=== PATIENT | female | born 1980 | race Caucasian/White ===

== ENCOUNTER 2019-11-06 15:25 | Outpatient (CLI) | payer OTHER, SELFPAY ==
--- NOTE | ~2019-11-06 | XR_ITS ---
EXAMINATION: XR sacroiliac joints min 3V EXAM DATE: 11/06/2019 17:54 INDICATION: Sacroiliac pain. TECHNIQUE: Bilateral oblique, frontal projections of the sacroiliac joints. There are no prior studi es for comparison. There is no prior study for comparison. FINDINGS: There are no acute sacral fractures or dislocations identified. There is no subcutaneous g as. The soft tissue is unremarkable. There is IUD projecting over the central aspect of the pelvis . The sacroiliac joints are symmetric. IMPRESSION: Unremarkable sacroiliac joints exam. Reviewed, dictated and finalized at location A.
--- NOTE | ~2019-11-06 | XR_ITS ---
EXAMINATION: XR hand RT min 3V EXAM DATE: 11/06/2019 17:54 INDICATION: No known recent injury provided at this time. Pain of the hand. TECHNIQUE: Right hand frontal, lateral and oblique projections obtained and reviewed. Comparison is m lou to prior examination from 01/09/2019. FINDINGS: Right metacarpal bones are unremarkable. There are no acute fractures or dislocations iden tified. There is no subcutaneous gas. The soft tissue is unremarkable. There are no radiopaque fo reign bodies. There are no bony erosions identified. IMPRESSION: Normal x-ray exam. Reviewed, dictated and finalized at location A. IMPRESSION: Normal x-ray exam.
--- NOTE | ~2019-11-06 | XR_ITS ---
EXAMINATION: XR hand LT min 3V EXAM DATE: 11/06/2019 17:54 INDICATION: No known recent injury provided at this time. Pain of the left hand. TECHNIQUE: Left hand frontal, lateral and oblique projections obtained and reviewed. Comparison is ma sho to prior examination from 01/09/2019. FINDINGS: Left metacarpal bones are unremarkable. There are no bony erosions identified. There are no acute fractures or dislocations identified. There is no subcutaneous gas. The soft tissue is unr emarkable. IMPRESSION: Normal x-ray exam. Reviewed, dictated and finalized at location A. IMPRESSION: Normal x-ray exam.
[2019-11-06 17:22] LABS: Basophils Absolute Auto 0.1 K/mm3 (0.0-0.1); Basophils Percent Auto 0.7 % (0.2-1.2); Eosinophils Absolute Auto 0.2 K/mm3 (0-0.3); Eosinophils Percent Auto 1.5 % (0-4.4); Hematocrit 36.5 % (37.0-47.0); Immature Granulocyte Absolute 0.04 K/mm3 (0.00-0.031); Immature Granulocyte Percent A 0.4 % (0-0.5); Lymphocytes Absolute Auto 2.52 K/mm3 (0.9-3.2); Mean Corpuscular HGB Conc 35.6 g/dl (32-36); Mean Corpuscular Hemoglobin 31.8 pg (26-34); Mean Corpuscular Volume 89.2 fl (80-100); Mean Platelet Volume 9.6 fl (7.4-10.4); Monocytes Absolute Auto 0.6 K/mm3 (0.1-0.6); Monocytes Percent Auto 6.3 % (2.6-8.5); Neutrophils Absolute Auto 6.7 K/mm3 (1.3-6.7); Neutrophils Percent Auto 66.1 % (45.5-73.1); Platelet Count Result 261 k/mm3 (150-375); Red Blood Count 4.09 M/mm3 (4.2-5.4); Red Cell Distribution Width 11.8 % (11.5-14.5); White Blood Count 10.1 K/mm3 (4.5-10.0)
[2019-11-06 17:33] LABS: Alanine Aminotransferase 18 U/L (4-35); Albumin Level 4.7 g/dL (3.5-5.1); Alkaline Phosphatase 53 U/L (38-126); Aspartate Amino Transferase 28 U/L (14-36); Bilirubin,Total 0.3 mg/dL (0.2-1.3); Blood Urea Nitrogen 15 mg/dL (7-17); CRP < 0.5 mg/dL (<1.0); Calcium 9.5 mg/dL (8.4-10.2); Carbon Dioxide 27 mmol/L (22-30); Chloride 101 mmol/L (98-107); Creatine Kinase 71 U/L (30-135); Estimated Glomerular Filt Rate > 60; Glucose 94 mg/dL (65-105); Potassium 3.3 mmol/L (3.4-5.0); Sodium 137 mmol/L (137-145); Uric Acid 4.5 mg/dL (2.5-7.5)
[2019-11-06 17:37] LABS: Complement C3 98 mg/dL (88-165)
[2019-11-06 17:47] LABS: Erythrocyte Sedimentation Rate 38 mm/hr (0-20)
[2019-11-06 18:15] LABS: Vitamin D 25 Hydroxy 55.6 ng/mL
[2019-11-11 04:36] LABS: Albumin 4.6 g/dL (3.8-4.8); Alpha 1 Globulin 0.2 g/dL (0.2-0.3); Alpha 2 Globulin 0.6 g/dL (0.5-0.9); Beta 1 Globulin 0.5 g/dL (0.4-0.6); Gamma Globulin 1.3 g/dL (0.8-1.7); Protein, Total 7.6 g/dL (6.1-8.1)
[2019-11-12 10:26] LABS: Histone Antibody <1.0 U (<1.0)
[2019-11-12 11:53] LABS: Chromatin Antibody <1.0; RNP Antibodies <1.0; SS-A <1.0; SS-B <1.0
[2019-11-12 12:04] LABS: Anti Nuclear Antibody Titer >=1:1280 (Negative)
[2019-11-12 18:47] LABS: Complement Total CH50 59 U/mL (31-60)
[2019-11-14 01:37] LABS: HLA B27 Negative (Negative)
[2019-11-15 10:38] LABS: SM Antibody <1.0; SM/RNP Antibody <1.0
== END 2019-11-06 15:26 | disposition home or self-care (01) ==
PROVIDERS: PCP Internal Medicine
DX: M25.50 Pain in unspecified joint (principal); M25.571 Pain in right ankle and joints of right foot; M25.572 Pain in left ankle and joints of left foot; R76.0 Raised antibody titer
CPT/HCPCS: 36415; 72202; 73130; 80053; 82306; 82550; 83516; 84155; 84165; 84443; 84550; 85025; 85652; 86038; 86039; 86140; 86160; 86162; 86225; 86235; 86334; 86812

== ENCOUNTER 2019-12-19 13:55 | Outpatient (CLI) | payer OTHER, SELFPAY ==
[2019-12-19 15:58] LABS: Blood Urea Nitrogen 16 mg/dL (7-17); Calcium 9.5 mg/dL (8.4-10.2); Carbon Dioxide 28 mmol/L (22-30); Chloride 98 mmol/L (98-107); Estimated Glomerular Filt Rate > 60; Glucose 94 mg/dL (65-105); Potassium 3.6 mmol/L (3.4-5.0); Sodium 135 mmol/L (137-145)
== END 2019-12-19 13:56 | disposition home or self-care (01) ==
LOC: ANHLAB 13:57
PROVIDERS: PCP Internal Medicine; Visit Provider Nurse Practitioner
DX: R25.2 Cramp and spasm (principal)
CPT/HCPCS: 36415; 80048

== ENCOUNTER 2019-12-31 16:45 | Outpatient (CLI) | payer OTHER, SELFPAY ==
--- NOTE | ~2019-12-31 | US_ITS ---
US thyroid INDICATION: Dysphagia. TECHNIQUE: Real-time sonographic images of the thyroid gland were obtained. COMPARISON: Ultrasound dated 03/09/2018 FINDINGS: The right thyroid lobe measures 5.2 x 2.4 x 1.7 cm. The left thyroid lobe measures 4.8 x 1 .6 x 1.2 cm. Thyroid echotexture is somewhat heterogeneous, although no discrete mass is identified. Normal internal vascularity. IMPRESSION: 1. Mildly enlarged thyroid gland which is otherwise unremarkable. Reviewed, dictated and finalized at location A.
== END 2019-12-31 16:46 | disposition home or self-care (01) ==
PROVIDERS: PCP Internal Medicine; Visit Provider Nurse Practitioner
DX: E04.1 Nontoxic single thyroid nodule (principal); R13.10 Dysphagia, unspecified
CPT/HCPCS: 76536

== ENCOUNTER 2020-01-31 02:37 | Outpatient (CLI) | payer OTHER, SELFPAY ==
[2020-01-31 18:57] LABS: SARS-CoV-2 RNA PCR Negative
== END 2020-01-31 02:38 | disposition home or self-care (01) ==
LOC: ANHCOVIDDT 02:37
PROVIDERS: PCP Internal Medicine; Visit Provider Internal Medicine Gastroenterology
DX: Z01.812 Encounter for preprocedural laboratory examination (principal); Z11.59 Encounter for screening for other viral diseases
CPT/HCPCS: 87635; C9803; U0003

== ENCOUNTER 2020-02-03 00:53 | Day surgery (SDC) | payer OTHER, SELFPAY ==
[2020-01-27 16:10] VITALS: BMI 28.6
[2020-02-03 06:55] VITALS: BP 145/90; PULSE 74; RESP 18; TEMP 36.9; O2SAT 100; BMI 29.8
--- NOTE | 2020-02-03 07:01 | PM.HPGS ---
History of Present Illness History of Present Illness Consent: Risks, benefits, and alternatives have been discussed and questions answered. Patient agrees to proceed with procedure. Chief complaint: Dysphagia Narrative: Osvaldo Moore is a 39 year old W female referred for gastroscopy and possible esophageal dilatation. Patient has had a several month history of intermittent dysphagia for both liquids and solids. Patient points to the cervical region. Patient has occasional episode of heartburn. Occasional regurgitation. No nausea or vomiting or hematemesis. No melena. Patient takes ibuprofen 4 mg couple times per week. She has a positive MOODY but other rheumatological markers are negative. Patient has had no weight loss. No fever chills or sweats. No known food allergies. Patient did have an ultrasound of the neck revealed a mildly enlarged thyroid gland otherwise unremarkable [facility] Past Medical History Medical History Anxiety Gestational diabetes Hypertension Paresthesia Family History Family History Father Hypertension Mother Hypertension Diabetes mellitus Hyperlipidemia Sibling Hypertension Multiple sclerosis Other Family history of heart disease in male family member before age 55 Social History Social History Smoking status: Never smoker Alcohol intake: current Meds Home Medications and Allergies Home Medications Medication Instructions Recorded Confirmed Type hydrochlorothiazide 12.5 mg tablet 12.5 mg PO DAILY #90 tablet 07/04/19 01/27/20 Rx alprazolam 0.25 mg tablet 0.25 mg PO BID PRN 12/11/19 01/27/20 History cholecalciferol (vitamin D3) 10 10 mcg PO DAILY 12/11/19 01/27/20 History mcg (400 unit) capsule levonorgestrel 20 mcg/24 hours (5 1 device I-UTERINE ONCE 12/11/19 01/27/20 History yrs) 52 mg intrauterine device multivitamin 1 tablet PO DAILY 12/11/19 01/27/20 History Allergies Allergy/AdvReac Type Severity Reaction Status Date / Time Penicillins Allergy Unknown Rash Verified 02/03/20 06:54 Vital Signs Vital Signs - 24 hr 02/03/20 06:55 Temperature 36.9 C Pulse Rate 74 Respiratory Rate 18 Blood Pressure 145/90 H Pulse Oximetry 100 Exam Const: Orientation/consciousness: patient oriented x3 Resp: Auscultation: clear to auscultation bilaterally Cardio: Rate: regular rate Rhythm: regular rhythm Heart sounds: no murmurs GI: GI Palp: Yes Soft to palpation, No Tenderness to palpation present (GI), Yes No hepatosplenomegaly present and No Palpable mass present Auscultation: normal bowel sounds Neuro: General: patient oriented x3 and no focal motor deficits Extrem: General: no pedal edema Assessment and Plan Additional Plan EGD for evaluation of cervical dysphagia
[2020-02-03] MEDS: LACTATED RINGERS 1,000 ML 150 ML IV CONT (07:04)
--- NOTE | 2020-02-03 07:30 | WPDANESEPPF ---
Anes - Initial Pre Proc Eval Procedure: Operation Date: 02/03/20 08:00 Proposed Procedures p Esophagogastroduodenoscopy - Wade Barbosa MD Date/Time: 02/03/20 07:30 Surgeon: Wade Barbosa MD Pre Op Diagnosis: Dysphagia Patient Data Age: 39 Gender: F Height: 5 ft 5 in Weight: 81.4 kg Last Vital Signs Temp 98.4 F 02/03/20 06:55 Pulse 74 02/03/20 06:55 Resp 18 02/03/20 06:55 BP 145/90 H 02/03/20 06:55 Pulse Ox 100 02/03/20 06:55 Allergies Allergy/AdvReac Type Severity Reaction Status Date / Time Penicillins Allergy Unknown Rash Verified 02/03/20 06:54 Home Medications Medication Instructions Recorded Confirmed Type hydrochlorothiazide 12.5 mg tablet 12.5 mg PO DAILY #90 tablet 07/04/19 01/27/20 Rx alprazolam 0.25 mg tablet 0.25 mg PO BID PRN 12/11/19 01/27/20 History cholecalciferol (vitamin D3) 10 10 mcg PO DAILY 12/11/19 01/27/20 History mcg (400 unit) capsule levonorgestrel 20 mcg/24 hours (5 1 device I-UTERINE ONCE 12/11/19 01/27/20 History yrs) 52 mg intrauterine device multivitamin 1 tablet PO DAILY 12/11/19 01/27/20 History Patient hx anesthesia problems: none Family hx anesthesia problems: none PMFSH Past Medical History Medical History Anxiety Gestational diabetes Hypertension Paresthesia Family History Family History Father Hypertension Mother Hypertension Diabetes mellitus Hyperlipidemia Sibling Hypertension Multiple sclerosis Other Family history of heart disease in male family member before age 55 Social History Social History Smoking status: Never smoker Alcohol intake: current Anes - Eval Final PreProcedure Day of Procedure 02/03/20 07:30 Patient weight: normal Heart: regular rate and rhythm Lungs: clear to auscultation Airway: Mallampati scale class II Neurological: alert and oriented Last oral intake: >/= 8 hours ASA classification: II Emergent: no Anesthetic plan: proceed Anesthesia type and monitoring: general GIVS and standard monitoring Informed Consent: The patient's anesthetic plan and its attendant risks and benefits were discussed with the patient/family/POA. Questions were solicited and answers provided to the satisfaction of the patient/family/POA.
[2020-02-03] MEDS: BENZOCAINE (*SP) 60 ML SPRAY CAN (HURRICAINE) 1 SPRAY MUCOUS MEM (07:55)
[2020-02-03 08:07] VITALS: BP 96/61; PULSE 67; RESP 15; O2SAT 94
[2020-02-03 08:17] VITALS: BP 98/61; PULSE 67; RESP 15; O2SAT 94
[2020-02-03 08:27] VITALS: BP 125/81; PULSE 77; RESP 15; O2SAT 96
== END 2020-02-03 09:00 | disposition home or self-care (01) ==
PROVIDERS: PCP Internal Medicine; Visit Provider Internal Medicine Gastroenterology
PROC: 0DJ08ZZ Inspection of Upper Intestinal Tract, Via Natural or Artificial Opening Endoscopic (ICD-10-PCS; CPT 43235; principal; 2020-02-03 08:00)
DX: R13.10 Dysphagia, unspecified (principal); K20.9 Esophagitis, unspecified; I10 Essential (primary) hypertension; F41.9 Anxiety disorder, unspecified
CPT/HCPCS: 43239; 87081; 88305; J2704; J7120

== ENCOUNTER 2020-05-09 07:10 | Outpatient (CLI) | payer OTHER, SELFPAY | END 2020-05-09 07:11 | disposition home or self-care (01) | LOC: ANHLAB 07:13 | PROVIDERS: PCP Internal Medicine | DX: Z13.1 Encounter for screening for diabetes mellitus (principal) | CPT/HCPCS: 36415; 83036 ==

== ENCOUNTER 2020-07-24 07:05 | Outpatient (CLI) | payer OTHER, SELFPAY ==
[2020-07-24 07:36] LABS: Basophils Absolute Auto 0.1 K/mm3 (0.0-0.1); Basophils Percent Auto 0.6 % (0.2-1.2); Eosinophils Absolute Auto 0.2 K/mm3 (0-0.3); Eosinophils Percent Auto 1.9 % (0-4.4); Hematocrit 39.6 % (37.0-47.0); Hemoglobin 13.8 g/dL (12.0-15.0); Immature Granulocyte Absolute 0.02 K/mm3 (0.00-0.031); Immature Granulocyte Percent A 0.2 % (0-0.5); Lymphocytes Percent Auto 28.8 % (18.3-44.2); Mean Corpuscular HGB Conc 34.8 g/dl (32-36); Mean Corpuscular Hemoglobin 31.4 pg (26-34); Mean Corpuscular Volume 90.2 fl (80-100); Mean Platelet Volume 9.3 fl (7.4-10.4); Monocytes Absolute Auto 0.6 K/mm3 (0.1-0.6); Monocytes Percent Auto 6.6 % (2.6-8.5); Neutrophils Absolute Auto 5.2 K/mm3 (1.3-6.7); Neutrophils Percent Auto 61.9 % (45.5-73.1); Platelet Count Result 271 k/mm3 (150-375); Red Blood Count 4.39 M/mm3 (4.2-5.4); Red Cell Distribution Width 11.9 % (11.5-14.5); White Blood Count 8.3 K/mm3 (4.5-10.0)
[2020-07-24 07:58] LABS: Alanine Aminotransferase 15 U/L (4-35); Albumin Level 4.3 g/dL (3.5-5.1); Alkaline Phosphatase 51 U/L (38-126); Anion Gap 5 mmol/L (8-16); Aspartate Amino Transferase 23 U/L (14-36); Bilirubin,Total 0.3 mg/dL (0.2-1.3); Blood Urea Nitrogen 19 mg/dL (7-17); Calcium 8.9 mg/dL (8.4-10.2); Carbon Dioxide 26 mmol/L (22-30); Chloride 107 mmol/L (98-107); Cholesterol 137 mg/dL (0-200); Estimated Glomerular Filt Rate > 60; Glucose 110 mg/dL (65-105); HDL Direct 25 mg/dL; Magnesium 1.9 mg/dL (1.6-2.3); Potassium 4.2 mmol/L (3.4-5.0); Sodium 138 mmol/L (137-145); Triglycerides 168 mg/dL (<150)
[2020-07-24 08:09] LABS: LDL Cholesterol Direct 84 mg/dL
== END 2020-07-24 07:06 | disposition home or self-care (01) ==
PROVIDERS: Family Provider Internal Medicine; PCP Internal Medicine; Visit Provider Clinical Nurse Specialist
DX: R00.2 Palpitations (principal); Z13.228 Encounter for screening for other metabolic disorders; I10 Essential (primary) hypertension; E04.1 Nontoxic single thyroid nodule
CPT/HCPCS: 36415; 80053; 80061; 83735; 84443; 85025

== ENCOUNTER 2020-08-05 13:43 | Outpatient (CLI) | payer OTHER, SELFPAY ==
--- NOTE | 2020-08-05 13:56 | ECHO_ITS ---
Patient Info Name: Osvaldo Moore Age: 40 years : 1980 Gender: Female Ht: 65 in Wt: 175 lbs BSA: 1.93 m2 HR: 88 bpm BP: 129 / 88 mmHg Technical Quality: Good Exam Date: 08/05/2020 2:07 PM Exam Location: [facility] Patient Status: Outpatient Admit Date: 08/05/2020 Staff Ordering Physician: Kala Montgomery NP Alpine Patroller: Rebecca Vieira RDCS Attending Provider: Kala Montgomery NP Referring Physician: Valentina CORONA; Exam Type: CA echo doppler color flow Study Info Indications palpitations - Complete two-dimensional, color flow and Doppler transthoracic echocardiogram is performed. Summary 1. Complete two-dimensional, color flow and Doppler transthoracic echocardiogram is performed. 2. Left ventricular chamber dimension is normal. 3. Left ventricular systolic function is normal, estimated at 60-65%. 4. The left ventricular diastolic function is grade II diastolic dysfunction. 5. E/e' 10 is mildly elevated. 6. No pulmonary hypertension, estimated pulmonary arterial systolic pressure is 25 mmHg. Left Ventricle E/e' 10 is mildly elevated. Left ventricular chamber dimension is normal. Left ventricular systolic function is normal, estimated at 60-65%. The left ventricular diastolic function is grade II diastolic dysfunction. Right Ventricle Right ventricular chamber dimension is normal. Right ventricular systolic function is normal. Left Atria Left atrial chamber dimension is normal. Right Atria Right atrial chamber dimension is normal. Aortic Valve The aortic valve is trileaflet. There is no aortic valve stenosis. There is no aortic valve regurgitation. Pulmonic Valve There is no pulmonic regurgitation. Mitral Valve There is no mitral valve stenosis. There is no mitral valve regurgitation. Tricuspid Valve There is no tricuspid valve regurgitation. No pulmonary hypertension, estimated pulmonary arterial systolic pressure is 25 mmHg. Pericardium/Pleural There is no pericardial effusion. Inferior Vena Cava Normal inferior vena cava with >50% collapse upon inspiration consistent with normal right atrial pressure, 5 mmHg. Aorta The aortic root size at the sinus of Valsalva is normal. Left Ventricular Outflow Tract Name Value Normal LVOT 2D LVOT Diameter 2.0 cm LVOT Doppler LVOT Peak Gradient 8 mmHg LVOT Mean Gradient 4 mmHg LVOT VTI 24 cm LVOT VTI/AV VTI Ratio 0.8 LVOT Stroke Volume 73 ml LVOT CO 18.3 l/min LVOT CI 9.5 l/min/m2 Pulmonic Valve Name Value Normal PV Doppler PV Peak Gradient 5 mmHg Mitral Valve
== END 2020-08-05 13:44 | disposition home or self-care (01) ==
PROVIDERS: Family Provider Internal Medicine; PCP Internal Medicine; Visit Provider Nurse Practitioner
DX: R00.2 Palpitations (principal)
CPT/HCPCS: 93306

== ENCOUNTER 2020-09-16 13:44 | Outpatient (CLI) | payer OTHER, SELFPAY ==
--- NOTE | 2020-09-16 15:00 | NEURO_ITS ---
Impression: # Complains of numbness. # Normal nerve conduction study including median and ulnar motor and sensory nerves # Normal needle/EMG exam. # Clinical correlation recommended. Nerve Conduction Studies Anti Sensory Summary Table Stim Site NR Peak (ms) P-T Amp (?V) Site1 Site2 Delta-P (ms) Dist (cm) Gerardo (m/s) Left Median Anti Sensory (2-3nd Digit) Wrist 2.6 104.3 Wrist 2-3nd Digit 2.6 14.0 54 Wrist 2.5 139.7 Wrist 2-3nd Digit 2.6 14.0 54 Right Median Anti Sensory (2-3nd Digit) Wrist 2.6 102.4 Wrist 2-3nd Digit 2.6 14.0 54 Wrist 2.6 107.9 Wrist 2-3nd Digit 2.6 14.0 54 Left Radial Anti Sensory (Base 1st Digit) Wrist 2.2 32.5 Wrist Base 1st Digit 2.2 0.0 Right Radial Anti Sensory (Base 1st Digit) Wrist 2.1 27.0 Wrist Base 1st Digit 2.1 0.0 Left Ulnar Anti Sensory (5th Digit) Wrist 2.3 125.7 Wrist 5th Digit 2.3 14.0 61 Right Ulnar Anti Sensory (5th Digit) Wrist 2.2 99.6 Wrist 5th Digit 2.2 14.0 64 Motor Summary Table Stim Site NR Onset (ms) O-P Amp (mV) Site1 Site2 Delta-0 (ms) Dist (cm) Gerardo (m/s) Left Median Motor (Abd Poll Brev) Wrist 2.8 1.7 Elbow Wrist 4.8 31.0 65 Elbow 7.6 1.0 Right Median Motor (Abd Poll Brev) Wrist 2.8 8.0 Elbow Wrist 4.0 26.0 65 Elbow 6.8 2.9 Left Ulnar Motor (Abd Dig Minimi) Wrist 2.2 4.1 A Elbow Wrist 4.7 29.0 62 A Elbow 6.9 2.9 Right Ulnar Motor (Abd Dig Minimi) Wrist 2.0 4.6 A Elbow Wrist 4.7 28.0 60 A Elbow 6.7 3.8 F Wave Studies NR F-Lat (ms) L-R F-Lat (ms) Left Median (Mrkrs) (Abd Poll Brev) 23.53 1.33 Right Median (Mrkrs) (Abd Poll Brev) 24.85 1.33 Left Ulnar (Mrkrs) (Abd Dig Min) 24.83 1.11 Right Ulnar (Mrkrs) (Abd Dig Min) 25.94 1.11 EMG Side Muscle Nerve Root Ins Act Fibs Amp Dur Recrt Comment Right 1stDorInt Ulnar C8-T1 Nml Nml Nml Nml Nml Right Ext Indicis Radial (Post Int) C7-8 Nml Nml Nml Nml Nml Right Ext Digitorum Radial (Post Int) C7-8 Nml Nml Nml Nml Nml Right BrachioRad Radial C5-6 Nml Nml Nml Nml Nml Right PronatorTeres Median C6-7 Nml Nml Nml Nml Nml Right Abd Poll Brev Median C8-T1 Nml Nml Nml Nml Nml Left 1stDorInt Ulnar C8-T1 Nml Nml Nml Nml Nml Left Ext Indicis Radial (Post Int) C7-8 Nml Nml Nml Nml Nml Left Ext Digitorum Radial (Post Int) C7-8 Nml Nml Nml Nml Nml Left BrachioRad Radial C5-6 Nml Nml Nml Nml Nml Left PronatorTeres Median C6-7 Nml Nml Nml Nml Nml Left Abd Poll Brev Median C8-T1 Nml Nml Nml Nml Nml MTDD
== END 2020-09-16 13:45 | disposition home or self-care (01) ==
PROVIDERS: PCP Internal Medicine
DX: R20.0 Anesthesia of skin (principal); R20.2 Paresthesia of skin
CPT/HCPCS: 95886; 95911

== ENCOUNTER 2020-11-03 08:00 | Outpatient (RCR) | payer OTHER, SELFPAY ==
--- NOTE | 2020-10-02 10:29 | PTOPEVAL ---
PHYSICAL THERAPY EVALUATION AND PLAN OF CARE 10-02-20 Thank you for referring Osvaldo Moore to [facility], for the diagnosis of thoracic and lumbar strain.? She is scheduled to be seen for therapy? 2-3 x/week for 2 weeks. Please review, sign, date and return this plan of care [facility]. I agree with and certify that the following plan of care is medically necessary. Referring Physician Date Referring Provider: Nanci Fleming, CRISTINA Document 10/02/20 09:35 SANDER (Rec: 10/02/20 10:29 SANDER [id number]) Assessment Status Evaluation Outpatient Past Medical History Past Medical History Source of Past Medical History Recalled from Previous Visit, Confirmed with Patient/Family Neurological History Hx Neurological Disorders No Significant History Cardiovascular History Hx Cardiac Arrhythmia Yes: pvc's Hx Hypertension Yes: meds Respiratory History Hx Respiratory Disorders No Significant History Gastrointestinal History Hx Gastroesophageal Reflux Disease Yes Genitourinary History Hx Genitourinary Disorders No Significant History Musculoskeletal History Hx Other Musculoskeletal Disorders Yes: previous PT for neck pain , 2-3 yr ago Hematological History Hx Hematological Disorders No Significant History Endocrine History Hx Endocrine Disorders No Significant History HEENT History Hx Other HEENT Disorders Yes: wisdom teeth removed Integumentary History Hx Skin Disorders No Significant History Reproductive History Hx Reproductive Disorders No Significant History Psychosocial History Hx Anxiety Yes Pain History History of Any Previous or Ongoing No Significant History Instance of Pain Anesthesia History Hx Anesthesia Reactions No Significant History Other History Hx Other Medical Conditions Yes: COVID in Apr 2020, ill for ~ 10 days-inc pvc's Evaluation Information Problem Diagnosis thoracic lumbar strain Onset September 17, 2020 Subjective Information was at work, lifting Query Text:As Reported By 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
--- NOTE | 2020-10-15 16:00 | PTOPEVAL ---
PHYSICAL THERAPY RE-EVALUATION AND UPDATED PLAN OF CARE 10-15-20 Refer to the clinical summary below for her status with today's reevaluation, compared to the initial evaluation. Recommend continued PT treatment 2x/wk for 3 weeks, to further increase her strength and lifting for return to full work duties. Thank you for referring Osvaldo Moore to [facility].? Please review, sign, date and return this plan of care [place]. I agree with and certify that the following plan of care is medically necessary. Referring Physician Date Referring Provider: Savage Hammond, MD *PT Outpatient Re-evaluation Document 10/15/20 15:20 SANDER (Rec: 10/15/20 16:00 SANDER [id number]) Subjective Information Osvaldo reports: back is better Query Text:As Reported By Patient/ - not hurting all the time Family like it was; have not been doing any lifting- afraid if return to work will hurt her back again with lifting; light duty work--computer and phone work; Pain Assessment Timing of Pain Assessment Timing of Pain Assessment Assessment Pain Scale Pain Scale Used Numeric (1 - 10) Self Report Pain Assessment Bilateral Back Reported Pain Level 2 Pain Description Aching Pain Frequency Acute Other Pain Description lower thoracic Lowest Pain Intensity 0 Greatest Pain Intensity 6 Pain Aggravating Factors Sitting Other Pain Aggravating Factors sit 20-30 min; Additional Pain Comments can sleep through the night; Pain Score Pain Score 2: Self Report Additional Pain Score Comments Oswestry self assessment score of 22% limitation in activity ; Interventions Used Interventions Used By Clinicians Exercise Pain Relief Interventions Used By Inactivity/Rest,Medication Patient Other Alleviating Interventions take tylenol & ibuprofen, stretch and heat decrease pain Cervical and Lumbar ROM Lumbar ROM Lumbar Comments standing trunk: extension without pain; rotation to R report little pull and pain; Rotation L no pain; side bend to R/L without pain; Posture Posture Standing Position Posture Evaluation View Posterior Head/C-Spine Posture Forward Head Thoracic Spine Posture Increased Kyphosis Lumbar Spine Posture Increased Lordosis Shoulder Posture (L) Rounded,(R) Rounded Pelvis Posture Anteriorly Tilted Weight Distribution Lan
--- NOTE | 2020-11-03 08:51 | PTOPEVAL ---
PHYSICAL THERAPY DISCHARGE 11-03-20 Refer to the clinical summary below, for her status with today's assessment, compared to the last reevaluation. She has met all of the goals, except pain rating at the worst rating. Discharge PT services, Osvaldo is to continue with her home exercise program and monitor her posture and positioning with home and work tasks. Thank you for referring Osvaldo Moore to [facility] [place][Note 2[place]? Please review, sign, date and return this Discharge report RUSH. I agree with and certify that the following plan of care is medically necessary. Referring Physician Date Attending Provider: CRISTINA Ledbetter Referring Provider: Savage Hammond MD *PT Outpatient discharge S Document 11/03/20 08:05 SANDER (Rec: 11/03/20 08:51 SANDER [id number]) Subjective Information Osvaldo reports: feeling better; Query Text:As Reported By Patient/ sore after doing therapy and Family exercises, but did not have to take any meds and it eased; have not been doing much lifting- have fiancee do lifting; can sit about 30-60 min; still doing light work- computer and phone work; doing more fitness exercises- walk on treadmill about 30 minutes; feel like can do normal job duties, 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 Pain Assessment Timing of Pain Assessment Timing of Pain Assessment Assessment Pain Scale Pain Scale Used Numeric (1 - 10) Self Report Pain Assessment Bilateral Back Reported Pain Level 1 Pain Description Soreness Pain Frequency Chronic Other Pain Description sore and stiff, no sharp pain; R thoracic/medial scapular area; Lowest Pain Intensity 1 Greatest Pain Intensity 4 Pain Aggravating Factors Sitting Pain Score Pain Score 1: Self Report Additional Pain Score Comments Oswestry self assessment functional limitation score of 8% limitation in activity Interventions Used Interventions Used By Clinicians Exercise Pain Relief Interventions Used By Pos
== END 2020-11-04 09:16 | disposition home or self-care (01) ==
LOC: ANHPT 08:00
PROVIDERS: PCP Internal Medicine; Referring Provider Internal Medicine
DX: S29.012A Strain of muscle and tendon of back wall of thorax, initial encounter (principal)
CPT/HCPCS: 97014; 97110; 97140; 97161; G0283

== ENCOUNTER 2020-11-09 07:50 | Outpatient (CLI) | payer OTHER, SELFPAY ==
--- NOTE | 2020-11-11 13:10 | WPDHOMESLEEP ---
Sleep Study - Home Unattended Date of Study: 11/09/20 Ordering Provider: Payam Hoskins DO Interpreting Provider: Nikki Blair MD Home Sleep Study Type: Watch PAT Height: 1.65 m Weight: 83.461 kg Body Mass Index: 30.6 Neck Circumference (inches): 14.50 [place]: 11 Reason for Sleep Study Hypersomnolence; recent echo results with diastolic dysfunction Sleep History Osvaldo Moore is a 40 year old female with Recent echos showing diastolic dysfunction. She has excessive daytime sleepiness. Her mother and half brother both have sleep apnea. She occasionally awakens from sleep feeling short of breath. She does not awaken at night with heartburn, belching or coughing. She occasionally snores. She rarely snores loudly enough so others complain about it. She constantly has trouble sleeping with a cold. She rarely wakes up gasping for breath at night. She does not have breathing problems at night observed by others. She does not sweat excessively night. She rarely notices her heart pounding or beating irregularly night. She occasionally falls asleep during the day, rarely falls asleep involuntarily and rarely falls asleep while driving. She does not have loss of muscle tone was strong emotion. She occasionally has daytime difficulties due to excessive sleepiness. She occasionally feels paralyzed on waking or falling asleep. She occasionally has vivid dreamlike scenes upon awakening or falling asleep. She does not feel afraid to go to sleep. She rarely has nightmares. She occasionally remembers her dreams. She occasionally has racing thoughts. She rarely feels sad or depressed. She occasionally has anxiety. She occasionally has muscular tension and notices parts of her body jerking. She rarely kicks at night. She rarely has crawling and aching feelings in her legs. She does not have any kind of leg pain at night. She occasionally has morning jaw pain. She constantly clenches her teeth during sleep. She rarely is bothered by pain during the day. She is not awakened by pain during the night. She constantly wakes up feeling stiff in the morning. She occasionally wakes up with sore achy muscles and frequently wakes up with pain in the neck and spine. She has palpitations, fatigue and memory problems. Normal Bedtime is 10:00 p.m. falling asleep within 30 minutes typically waking 3 or 4 times at night. She may stay awake for a few minutes or as long as an hour. While awake she will read to help her fall asleep again. These awakenings occur in the middle of the night. She wakes the morning at 5:00 a.m.. On the weekends, she also goes to bed at 10:00 p.m. but wakes later, 7-8 a.m.. She does wake at night to assist her child at times. She sometimes takes a nap in the afternoon or evening. A short nap is not refreshing. She is drowsy in the morning for an hour or longer. She feels better in the morning compared other times of day. Habits: Never smoked tobacco. No caffeine, alcohol or recreational drugs. [facility] Past Medical History Medical History Anxiety Gestational diabetes Hypertension Paresthesia Family History Family History Father Hypertension Mother Hypertension Diabetes mellitus Hyperlipidemia Sibling Hypertension Multiple sclerosis Other Family history of heart disease in male family member before age 55 Social History Social History Smoking status: Never smoker Alcohol intake: current Medications Home Medications Medication Instructions Recorded Confirmed Type alprazolam 0.25 mg tablet 0.25 mg PO BID PRN 12/11/19 05/29/20 History cholecalciferol (vitamin D3) 10 10 mcg PO DAILY 12/11/19 05/29/20 History mcg (400 unit) capsule levonorgestrel 20 mcg/24 hours (6 1 device I-UTERINE ONCE 12/11/19 05/29/20 History yrs) 52 mg int
[2020-11-11 13:21] VITALS: BMI 30.6
== END 2020-11-09 07:51 | disposition home or self-care (01) ==
LOC: ANHCSM 07:51
PROVIDERS: PCP Internal Medicine; Visit Provider Internal Medicine Cardiovascular Disease
DX: G47.33 Obstructive sleep apnea (adult) (pediatric) (principal)
CPT/HCPCS: 95800

== ENCOUNTER → 2020-11-24 03:17 | Outpatient (CLI) | payer OTHER, SELFPAY ==
[2020-11-24 18:14] LABS: SARS-CoV-2 RNA PCR Negative
== END ==
PROVIDERS: PCP Internal Medicine; Visit Provider Internal Medicine Critical Care Medicine
DX: Z01.812 Encounter for preprocedural laboratory examination (principal); Z20.822 Contact with and (suspected) exposure to COVID-19
CPT/HCPCS: C9803; U0003; U0005

== ENCOUNTER 2020-11-26 08:13 | Outpatient (CLI) | payer OTHER, SELFPAY ==
--- NOTE | 2020-12-11 10:50 | WPDSLEEPSTUD ---
Sleep Study Date of Study: 11/26/20 Ordering Provider: Payam Hoskins DO Interpreting Physician: Nikki Blair MD Sleep Study Type: CPAP Titration Height: 1.65 m Weight: 81.647 kg Body Mass Index: 29.9 Neck Circumference (inches): 14.50 [place]: 13 Reason for Sleep Study Home Sleep Test November 09, 2020 for hypersomnolence, diastolic dysfunction; mild obstructive sleep apnea, AHI 6.9, 87% and snoring. Central AHI 0.5. Patient presents for CPAP titration. Sleep History Osvaldo Moore is a 40 year old female with Recent echos showing diastolic dysfunction. She has excessive daytime sleepiness. Her mother and half brother both have sleep apnea. She occasionally awakens from sleep feeling short of breath. She does not awaken at night with heartburn, belching or coughing. She occasionally snores. She rarely snores loudly enough so others complain about it. She constantly has trouble sleeping with a cold. She rarely wakes up gasping for breath at night. She does not have breathing problems at night observed by others. She does not sweat excessively night. She rarely notices her heart pounding or beating irregularly night. She occasionally falls asleep during the day, rarely falls asleep involuntarily and rarely falls asleep while driving. She does not have loss of muscle tone was strong emotion. She occasionally has daytime difficulties due to excessive sleepiness. She occasionally feels paralyzed on waking or falling asleep. She occasionally has vivid dreamlike scenes upon awakening or falling asleep. She does not feel afraid to go to sleep. She rarely has nightmares. She occasionally remembers her dreams. She occasionally has racing thoughts. She rarely feels sad or depressed. She occasionally has anxiety. She occasionally has muscular tension and notices parts of her body jerking. She rarely kicks at night. She rarely has crawling and aching feelings in her legs. She does not have any kind of leg pain at night. She occasionally has morning jaw pain. She constantly clenches her teeth during sleep. She rarely is bothered by pain during the day. She is not awakened by pain during the night. She constantly wakes up feeling stiff in the morning. She occasionally wakes up with sore achy muscles and frequently wakes up with pain in the neck and spine. She has palpitations, fatigue and memory problems. Normal Bedtime is 10:00 p.m. falling asleep within 30 minutes typically waking 3 or 4 times at night. She may stay awake for a few minutes or as long as an hour. While awake she will read to help her fall asleep again. These awakenings occur in the middle of the night. She wakes the morning at 5:00 a.m.. On the weekends, she also goes to bed at 10:00 p.m. but wakes later, 7-8 a.m.. She does wake at night to assist her child at times. She sometimes takes a nap in the afternoon or evening. A short nap is not refreshing. She is drowsy in the morning for an hour or longer. She feels better in the morning compared other times of day. Habits: Never smoked tobacco. No caffeine, alcohol or recreational drugs. [facility] Past Medical History Medical History Anxiety Gestational diabetes Hypertension Paresthesia Family History Family History Father Hypertension Mother Hypertension Diabetes mellitus Hyperlipidemia Sibling Hypertension Multiple sclerosis Other Family history of heart disease in male family member before age 55 Social History Social History Smoking status: Never smoker Alcohol intake: current Medications Home Medications Medication Instructions Recorded Confirmed Type alprazolam 0.25 mg tablet 0.25 mg PO BID PRN 12/11/19 12/02/20 History levonorgestrel 20 mcg/24 hours (6 1 device I-UTERINE ONCE 12/11/19 12/02/20 History yr
[2020-12-11 11:10] VITALS: BMI 29.9
== END 2020-11-27 05:18 | disposition home or self-care (01) ==
LOC: ANHCSM 08:13
PROVIDERS: PCP Internal Medicine; Visit Provider Internal Medicine Cardiovascular Disease
DX: G47.33 Obstructive sleep apnea (adult) (pediatric) (principal)
CPT/HCPCS: 95811

== ENCOUNTER 2020-12-24 15:27 | Outpatient (CLI) | payer OTHER, SELFPAY ==
[2020-12-24 16:39] LABS: Basophils Absolute Auto 0.1 K/mm3 (0.0-0.1); Basophils Percent Auto 0.8 % (0.2-1.2); Eosinophils Absolute Auto 0.1 K/mm3 (0-0.3); Eosinophils Percent Auto 1.5 % (0-4.4); Hematocrit 38.7 % (37.0-47.0); Hemoglobin 13.5 g/dL (12.0-15.0); Immature Granulocyte Absolute 0.02 K/mm3 (0.00-0.031); Immature Granulocyte Percent A 0.3 % (0-0.5); Lymphocytes Absolute Auto 2.37 K/mm3 (0.9-3.2); Lymphocytes Percent Auto 33.1 % (18.3-44.2); Mean Corpuscular HGB Conc 34.9 g/dl (32-36); Mean Corpuscular Hemoglobin 31.2 pg (26-34); Mean Corpuscular Volume 89.4 fl (80-100); Mean Platelet Volume 9.2 fl (7.4-10.4); Monocytes Absolute Auto 0.5 K/mm3 (0.1-0.6); Monocytes Percent Auto 6.3 % (2.6-8.5); Neutrophils Absolute Auto 4.1 K/mm3 (1.3-6.7); Platelet Count Result 292 k/mm3 (150-375); Red Blood Count 4.33 M/mm3 (4.2-5.4); Red Cell Distribution Width 11.7 % (11.5-14.5); White Blood Count 7.2 K/mm3 (4.5-10.0)
[2020-12-24 16:53] LABS: Alanine Aminotransferase 15 U/L (4-35); Albumin Level 4.9 g/dL (3.5-5.1); Alkaline Phosphatase 54 U/L (38-126); Anion Gap 11 mmol/L (8-16); Aspartate Amino Transferase 28 U/L (14-36); Bilirubin,Total 0.5 mg/dL (0.2-1.3); Blood Urea Nitrogen 17 mg/dL (7-17); CRP 0.7 mg/dL (<1.0); Calcium 9.9 mg/dL (8.4-10.2); Carbon Dioxide 28 mmol/L (22-30); Chloride 102 mmol/L (98-107); Estimated Glomerular Filt Rate > 60; Glucose 87 mg/dL (65-105); Potassium 3.5 mmol/L (3.4-5.0); Sodium 141 mmol/L (137-145)
[2020-12-24 16:57] LABS: Complement C3 120 mg/dL (88-165); Rheumatoid Factor < 8.6 IU/ML (<12)
[2020-12-24 17:47] LABS: Erythrocyte Sedimentation Rate 28 mm/hr (0-20)
[2020-12-24 19:42] LABS: Hepatitis B Surface Antigen Negative (Negative)
[2020-12-24 19:49] LABS: HAV RESULT Negative (Negative); Hepatitis B Core IgM Result Negative (Negative)
[2020-12-24 20:00] LABS: Hepatitis C Virus Antibody Negative (Negative)
[2020-12-28 05:42] LABS: Anti Centromere B Antibody <1.0
[2020-12-29 07:07] LABS: Chromatin Antibody <1.0; RNP Antibodies <1.0; SS-A <1.0; SS-B <1.0
[2020-12-29 11:52] LABS: Scleroderma 70 Antibody <1.0
[2020-12-29 23:07] LABS: Histone Antibody <1.0 U (<1.0)
[2020-12-30 03:58] LABS: Albumin 4.4 g/dL (3.8-4.8); Alpha 1 Globulin 0.3 g/dL (0.2-0.3); Alpha 2 Globulin 0.7 g/dL (0.5-0.9); Beta 1 Globulin 0.5 g/dL (0.4-0.6); Gamma Globulin 1.4 g/dL (0.8-1.7); Protein, Total 7.8 g/dL (6.1-8.1)
== END 2020-12-24 15:28 | disposition home or self-care (01) ==
PROVIDERS: PCP Internal Medicine
DX: R76.0 Raised antibody titer (principal); R20.2 Paresthesia of skin; R53.83 Other fatigue; M25.50 Pain in unspecified joint
CPT/HCPCS: 36415; 80053; 80074; 83516; 84155; 84165; 85025; 85652; 86038; 86039; 86140; 86160; 86225; 86235; 86430

== ENCOUNTER → 2021-01-19 10:53 | Outpatient (REF) | payer OTHER, SELFPAY | LOC: ANHLAB 10:53 | PROVIDERS: PCP Internal Medicine; Visit Provider Nurse Practitioner | DX: D22.5 Melanocytic nevi of trunk (principal) | CPT/HCPCS: 88305 ==

== ENCOUNTER 2021-05-04 17:09 | Outpatient (CLI) | payer OTHER, SELFPAY | END 2021-05-04 17:10 | disposition home or self-care (01) | LOC: ANHLAB 17:12 | PROVIDERS: PCP Internal Medicine; Visit Provider Nurse Practitioner | DX: E04.2 Nontoxic multinodular goiter (principal) | CPT/HCPCS: 36415; 84439; 84443 ==

== ENCOUNTER 2021-05-25 10:20 | Outpatient (CLI) | payer OTHER, SELFPAY ==
--- NOTE | ~2021-05-25 | US_ITS ---
US thyroid INDICATION: Thyroid nodules TECHNIQUE: Real-time sonographic images of the thyroid gland were obtained. COMPARISON: Ultrasound dated 12/31/2019 FINDINGS: The right thyroid lobe measures 4.7 x 1.7 x 1.3 cm. The left thyroid lobe measures 4.7 x 1 .2 x 1.5 cm. There is normal echotexture and echogenicity throughout the thyroid gland. There are mul tiple small cysts of both lobes, largest in the left lobe measuring 3 mm. No suspicious masses. Beata l vascular flow is present. IMPRESSION: 1. Bilateral benign thyroid cysts measuring up to 3 mm. Otherwise, unremarkable thyroid ultrasound. Reviewed, dictated and finalized at location B. [facility] IMPRESSION: 1. Bilateral benign thyroid cysts measuring up to 3 mm. Otherwise, unremarkabl e thyroid ultrasound.
== END 2021-05-25 10:21 | disposition home or self-care (01) ==
LOC: ANHIMG 10:22
PROVIDERS: PCP Internal Medicine; Visit Provider Nurse Practitioner
DX: E04.2 Nontoxic multinodular goiter (principal)
CPT/HCPCS: 76536

== ENCOUNTER 2021-06-15 12:44 | Outpatient (CLI) | payer OTHER, SELFPAY | END 2021-06-15 12:45 | disposition home or self-care (01) | LOC: ANHLAB 12:46 | PROVIDERS: PCP Internal Medicine; Visit Provider Nurse Practitioner | DX: J02.9 Acute pharyngitis, unspecified (principal) | CPT/HCPCS: 87081; 87880 ==

== ENCOUNTER 2021-09-04 06:51 | Outpatient (CLI) | payer OTHER, SELFPAY ==
[2021-09-04 07:21] LABS: Basophils Percent Auto 0.7 % (0.2-1.2); Eosinophils Absolute Auto 0.1 K/mm3 (0-0.3); Hematocrit 40.3 % (37.0-47.0); Hemoglobin 14.1 g/dL (12.0-15.0); Immature Granulocyte Absolute 0.05 K/mm3 (0.00-0.031); Immature Granulocyte Percent A 0.8 % (0-0.5); Lymphocytes Absolute Auto 2.03 K/mm3 (0.9-3.2); Lymphocytes Percent Auto 33.6 % (18.3-44.2); Mean Corpuscular Hemoglobin 32.2 pg (26-34); Mean Platelet Volume 9.4 fl (7.4-10.4); Monocytes Absolute Auto 0.4 K/mm3 (0.1-0.6); Monocytes Percent Auto 5.8 % (2.6-8.5); Neutrophils Absolute Auto 3.5 K/mm3 (1.3-6.7); Neutrophils Percent Auto 57.1 % (45.5-73.1); Platelet Count Result 250 k/mm3 (150-375); Red Blood Count 4.38 M/mm3 (4.2-5.4); Red Cell Distribution Width 11.9 % (11.5-14.5); White Blood Count 6.1 K/mm3 (4.5-10.0)
[2021-09-04 07:25] LABS: Hemoglobin A1C 4.7 % (<5.7)
[2021-09-04 07:26] LABS: Alanine Aminotransferase 17 U/L (4-35); Albumin Level 4.4 g/dL (3.5-5.1); Alkaline Phosphatase 48 U/L (38-126); Anion Gap 7 mmol/L (8-16); Aspartate Amino Transferase 26 U/L (14-36); Bilirubin,Total 0.5 mg/dL (0.2-1.3); Blood Urea Nitrogen 13 mg/dL (7-17); Calcium 8.9 mg/dL (8.4-10.2); Carbon Dioxide 24 mmol/L (22-30); Chloride 107 mmol/L (98-107); Cholesterol 144 mg/dL (0-200); Estimated Glomerular Filt Rate > 60; Glucose 96 mg/dL (65-110); HDL Direct 33 mg/dL; Sodium 138 mmol/L (137-145); Triglycerides 97 mg/dL (<150)
[2021-09-04 07:37] LABS: LDL Cholesterol Direct 84 mg/dL
[2021-09-04 09:01] LABS: Vitamin D 25 Hydroxy 52.4 ng/mL
== END 2021-09-04 06:52 | disposition home or self-care (01) ==
PROVIDERS: PCP Internal Medicine; Visit Provider Nurse Practitioner
DX: R73.09 Other abnormal glucose (principal); I10 Essential (primary) hypertension; E55.9 Vitamin D deficiency, unspecified; Z13.220 Encounter for screening for lipoid disorders
CPT/HCPCS: 36415; 80053; 80061; 82306; 83036; 85025

== ENCOUNTER 2022-02-22 15:26 | Outpatient (CLI) | payer OTHER, SELFPAY ==
[2022-02-22 16:37] LABS: Basophils Percent Auto 0.5 % (0.2-1.2); Eosinophils Absolute Auto 0.1 K/mm3 (0-0.3); Hematocrit 37.7 % (37.0-47.0); Hemoglobin 13.3 g/dL (12.0-15.0); Immature Granulocyte Absolute 0.02 K/mm3 (0.00-0.031); Immature Granulocyte Percent A 0.3 % (0-0.5); Lymphocytes Absolute Auto 2.09 K/mm3 (0.9-3.2); Lymphocytes Percent Auto 34.3 % (18.3-44.2); Mean Corpuscular HGB Conc 35.3 g/dl (32-36); Mean Corpuscular Hemoglobin 32.7 pg (26-34); Mean Corpuscular Volume 92.6 fl (80-100); Mean Platelet Volume 9.5 fl (7.4-10.4); Monocytes Absolute Auto 0.4 K/mm3 (0.1-0.6); Monocytes Percent Auto 6.9 % (2.6-8.5); Neutrophils Absolute Auto 3.4 K/mm3 (1.3-6.7); Platelet Count Result 282 k/mm3 (150-375); Red Blood Count 4.07 M/mm3 (4.2-5.4); Red Cell Distribution Width 12.2 % (11.5-14.5); White Blood Count 6.1 K/mm3 (4.5-10.0)
[2022-02-22 16:39] LABS: Add Urine Microscopic? YES; Appearance Urine Clear (Clear); Bilirubin Urine Negative (Negative); Blood Urine Trace-lysed (Negative); Color Urine Yellow (Yellow); Glucose Urine UA Negative (Negative); Ketones Urine Negative (Negative); Leukocyte Esterase Ur 3+ LEU/UL (Negative); Nitrate Urine Negative (Negative); Protein Urine Negative (Negative); Specific Grav Ur 1.015 (1.001-1.035); Urobilinogen Urine 0.2 mg/dL (<2.0)
[2022-02-22 16:45] LABS: Bacteria Urine Trace /hpf; Mucus Urine Rare /lpf; RBC Urine 0-2 /hpf (0-2); Squamous Epithelial Cell Urine Many /hpf (Few); WBC Urine >75 /hpf
[2022-02-22 16:54] LABS: Alanine Aminotransferase 16 U/L (6-35); Albumin Level 4.7 g/dL (3.5-5.1); Alkaline Phosphatase 54 U/L (38-126); Anion Gap 12 mmol/L (8-16); Aspartate Amino Transferase 26 U/L (14-36); Bilirubin,Total 0.5 mg/dL (0.2-1.3); Blood Urea Nitrogen 14 mg/dL (7-17); CRP < 0.5 mg/dL (<1.0); Calcium 9.7 mg/dL (8.4-10.2); Carbon Dioxide 28 mmol/L (22-30); Chloride 99 mmol/L (98-107); Estimated Glomerular Filt Rate > 60; Glucose 92 mg/dL (65-110); Potassium 3.6 mmol/L (3.4-5.0); Sodium 139 mmol/L (137-145)
[2022-02-22 16:55] LABS: Complement C3 102 mg/dL (88-165)
[2022-02-22 17:11] LABS: Erythrocyte Sedimentation Rate 17 mm/hr (0-20)
[2022-02-25 11:49] LABS: Histone Antibody <1.0 U (<1.0)
[2022-02-28 12:06] LABS: Chromatin Antibody <1.0; RNP Antibodies <1.0; SS-A <1.0; SS-B <1.0
[2022-02-28 17:24] LABS: ANCA Screen Negative (Negative)
[2022-03-03 13:15] LABS: Anti Nuclear Antibody Titer >=1:1280 (Negative)
== END 2022-02-22 15:27 | disposition home or self-care (01) ==
PROVIDERS: PCP Internal Medicine
DX: R20.2 Paresthesia of skin (principal); R53.83 Other fatigue; R76.0 Raised antibody titer; M25.50 Pain in unspecified joint
CPT/HCPCS: 36415; 80053; 81001; 83516; 85025; 85652; 86036; 86038; 86039; 86140; 86160; 86225; 86235; 87086

== ENCOUNTER 2022-10-11 09:59 | Outpatient (CLI) | payer OTHER, SELFPAY ==
--- NOTE | ~2022-10-11 | MM_ITS ---
EXAMINATION: MM screening lulu BI w myra HISTORY: Screening mammogram TECHNIQUE: Craniocaudal and mediolateral oblique 3-D tomosynthesis images were obtained and synthetic 2-D images were generated. CAD analysis was submitted and interpreted. COMPARISON: None, baseline BREAST PARENCHYMAL COMPOSITION: There are scattered areas of fibroglandular density. FINDINGS: RIGHT BREAST: No suspicious mass, calcification, or architectural distortion are identified to sugges t malignancy. LEFT BREAST: There is focal asymmetry in the posterior third of the upper outer quadrant of the breas t. IMPRESSION: 1. Left breast focal asymmetry. 2. Additional mammographic views and possible breast ultrasound are recommended. BI-RADS Category 0: Incomplete: Needs additional imaging evaluation. Reviewed, dictated and finalized at location A. IMPRESSION: 1. Left breast focal asymmetry. 2. Additional mammographic views and possible breast ultrasound are recommended . BI-RADS Category 0: Incomplete: Needs additional imaging evaluation.
== END 2022-10-11 10:00 | disposition home or self-care (01) ==
LOC: ANHIMG 10:00
PROVIDERS: PCP Internal Medicine; Visit Provider Obstetrics & Gynecology Gynecology
DX: Z12.31 Encounter for screening mammogram for malignant neoplasm of breast (principal); R92.8 Other abnormal and inconclusive findings on diagnostic imaging of breast
CPT/HCPCS: 77063; 77067

== ENCOUNTER 2022-11-07 11:24 | Outpatient (CLI) | payer OTHER, SELFPAY ==
--- NOTE | ~2022-11-07 | MMUS_ITS ---
EXAMINATION: MM diagnostic lulu LT w myra, US breast LT limited HISTORY: Left breast focal asymmetry on screening mammogram TECHNIQUE: Additional 3-D tomosynthesis images of the left breast were performed and synthetic 2-D im ages were generated. CAD analysis was submitted and interpreted. High resolution limited left breast ultrasound was performed. COMPARISON: 10/11/2022 FINDINGS: MAMMOGRAPHIC FINDINGS: A subtle persistent focal asymmetry is present in the posterior third of the upper outer quadrant of the breast. No suspicious calcification or architectural distortion are identified. ULTRASOUND: There is no evidence of focal abnormal solid or cystic mass in the vicinity of the mammographic findi ng in question. IMPRESSION: 1. Probably benign focal asymmetry of the left breast. 2. Recommend 6 month follow-up left diagnostic mammogram and possible ultrasound BI-RADS category 3, probably benign findings. Reviewed, dictated and finalized at location A. IMPRESSION: 1. Probably benign focal asymmetry of the left breast. 2. Recommend 6 month follow-up left diagnostic mammogram and possible ultrasoun d BI-RADS category 3, probably benign findings.
== END 2022-11-07 11:25 | disposition home or self-care (01) ==
LOC: ANHIMG 11:24
PROVIDERS: PCP Internal Medicine; Visit Provider Obstetrics & Gynecology Gynecology
DX: R92.8 Other abnormal and inconclusive findings on diagnostic imaging of breast (principal)
CPT/HCPCS: 76642; 77061; 77065; G0279

== ENCOUNTER 2022-12-22 08:34 | Outpatient (CLI) | payer OTHER, SELFPAY ==
--- NOTE | 2022-12-22 08:41 | ECHO_ITS ---
Patient Info Name: Osvaldo Bunn Age: 42 years : 1980 Gender: Female Ht: 65 in Wt: 175 lbs BSA: 1.93 m2 HR: 70 bpm BP: 123 / 89 mmHg Heart Rhythm: Sinus Rhythm Technical Quality: Good Exam Date: 12/22/2022 8:50 AM Exam Location: [facility] Patient Status: Outpatient Admit Date: 12/22/2022 Staff Ordering Physician: Breanne Sepulveda PA-C Cigar Packer And Sorter: Maureen Blanco RDCS Attending Provider: Breanne Sepulveda PA-C Exam Type: CA echo doppler color flow Study Info Indications I51.89 - Other ill-defined heart diseases Complete two-dimensional, color flow and Doppler transthoracic echocardiogram is performed. Summary 1. Complete two-dimensional, color flow and Doppler transthoracic echocardiogram is performed. 2. Left ventricular chamber dimension is normal. 3. Left ventricular systolic function is normal, estimated at 60-65%. 4. The left ventricular diastolic function is grade I diastolic dysfunction. 5. E/e' 10 is mildly elevated. 6. Global longitudinal strain is normal at -18.6%. 7. No pulmonary hypertension, estimated pulmonary arterial systolic pressure is 32 mmHg. Left Ventricle E/e' 10 is mildly elevated. Global longitudinal strain is normal at -18.6%. Left ventricular chamber dimension is normal. Left ventricular systolic function is normal, estimated at 60-65%. The left ventricular diastolic function is grade I diastolic dysfunction. Right Ventricle Right ventricular systolic function is normal and with normal TAPSE 2.2 cm. Right ventricular chamber dimension is normal. Left Atria Left atrial chamber dimension is normal. Right Atria Right atrial chamber dimension is normal. Aortic Valve The aortic valve is trileaflet. There is no aortic valve stenosis. There is no aortic valve regurgitation. Pulmonic Valve There is no pulmonic regurgitation. Mitral Valve There is no mitral valve stenosis. There is no mitral valve regurgitation. Tricuspid Valve There is no tricuspid valve regurgitation. No pulmonary hypertension, estimated pulmonary arterial systolic pressure is 32 mmHg. Pericardium/Pleural There is no pericardial effusion. Inferior Vena Cava Normal inferior vena cava with >50% collapse upon inspiration consistent with normal right atrial pressure, 5 mmHg. Aorta The aortic root size at the sinus of Valsalva is normal. Left Ventricular Outflow Tract Name Value Normal LVOT 2D LVOT Diameter 1.9 cm LVOT Doppler LVOT Peak Gradient 7 mmHg LVOT Mean Gradient 4 mmHg LVOT VTI 27 cm LVOT VTI/AV VTI Ratio 0.9 LVOT Stroke Volume 78 ml LVOT CO 5.6 l/min LVOT CI 2.9 l/min/m2 Pulmonic Valve Name Value Normal RVOT Doppler RVOT Peak Gradient 2 mmHg PV Doppler
== END 2022-12-22 08:35 | disposition home or self-care (01) ==
LOC: ANHCARD 08:36
PROVIDERS: PCP Internal Medicine; Visit Provider Physician Assistant
DX: I51.89 Other ill-defined heart diseases (principal)
CPT/HCPCS: 93306

== ENCOUNTER 2023-04-18 11:20 | Outpatient (CLI) | payer OTHER, SELFPAY ==
--- NOTE | ~2023-04-18 | MMUS_ITS ---
EXAMINATION: MM diagnostic lulu LT w myra, US breast LT limited HISTORY: Six-month follow-up of probably benign focal mammographic asymmetry in posterior third of up per outer quadrant of left breast TECHNIQUE: Additional 3-D tomosynthesis images of the left breast were performed and synthetic 2-D im ages were generated. CAD analysis was submitted and interpreted. High resolution upper outer quadrant left breast ultrasound was performed. COMPARISON: 11/07/2022 diagnostic left mammogram and limited left breast ultrasound BREAST PARENCHYMAL COMPOSITION: There are scattered areas of fibroglandular density. FINDINGS: MAMMOGRAPHIC FINDINGS: No suspicious mass or architectural distortion, malignant calcification, skin thickening or retractio n or significant new or developing density is detected. ULTRASOUND: No suspicious mass or shadowing or other significant sonographic abnormality is detected in the upper outer quadrant of the left breast. IMPRESSION: 1. No evidence of malignancy 2. Routine annual mammographic screening is recommended BI-RADS Category 1: Negative Reviewed, dictated and finalized at location A. IMPRESSION: 1. No evidence of malignancy 2. Routine annual mammographic screening is recommended BI-RADS Category 1: Negative
== END 2023-04-18 11:21 | disposition home or self-care (01) ==
PROVIDERS: PCP Internal Medicine; Visit Provider Obstetrics & Gynecology Gynecology
DX: R92.8 Other abnormal and inconclusive findings on diagnostic imaging of breast (principal)
CPT/HCPCS: 76642; 77061; 77065; G0279

== ENCOUNTER 2023-07-22 07:15 | Outpatient (CLI) | payer OTHER, SELFPAY ==
[2023-07-22 07:48] LABS: Hemoglobin 13.6 g/dL (12.0-15.0); Mean Corpuscular Hemoglobin 31.4 pg (26-34); Mean Corpuscular Volume 92.4 fl (80-100); Mean Platelet Volume 9.2 fl (7.4-10.4); Platelet Count Result 257 k/mm3 (150-375); Red Blood Count 4.33 M/mm3 (4.2-5.4)
[2023-07-22 07:58] LABS: Alanine Aminotransferase 19 U/L (6-35); Albumin Level 4.3 g/dL (3.5-5.1); Alkaline Phosphatase 53 U/L (38-126); Anion Gap 9 mmol/L (8-16); Aspartate Amino Transferase 22 U/L (14-36); Bilirubin,Total 0.7 mg/dL (0.2-1.3); Blood Urea Nitrogen 11 mg/dL (7-17); Calcium 9.2 mg/dL (8.4-10.2); Carbon Dioxide 23 mmol/L (22-30); Chloride 107 mmol/L (98-107); Cholesterol 161 mg/dL (0-200); Estimated Glomerular Filt Rate > 60; Glucose 98 mg/dL (65-110); HDL Direct 33 mg/dL; Potassium 4.3 mmol/L (3.4-5.0); Sodium 139 mmol/L (137-145); Triglycerides 113 mg/dL (<150)
[2023-07-22 08:02] LABS: Hemoglobin A1C 5.1 % (<5.7)
[2023-07-22 08:09] LABS: LDL Cholesterol Direct 99 mg/dL
[2023-07-22 08:30] LABS: Vitamin D 25 Hydroxy 36.8 ng/mL
== END 2023-07-22 07:16 | disposition home or self-care (01) ==
LOC: ANHLAB 07:18
PROVIDERS: PCP Internal Medicine; Visit Provider Obstetrics & Gynecology Gynecology
DX: E55.9 Vitamin D deficiency, unspecified (principal); Z01.419 Encounter for gynecological examination (general) (routine) without abnormal findings
CPT/HCPCS: 36415; 80053; 80061; 82306; 83036; 84443; 85027

== ENCOUNTER 2023-10-10 15:10 | Outpatient (CLI) | payer OTHER, SELFPAY ==
[2023-10-10 15:37] LABS: Anion Gap 6 mmol/L (4-12); Blood Urea Nitrogen 18 mg/dL (7-17); Calcium 9.5 mg/dL (8.4-10.2); Carbon Dioxide 27 mmol/L (22-30); Chloride 104 mmol/L (98-107); Estimated Glomerular Filt Rate > 60; Glucose 93 mg/dL (65-110); Magnesium 2.1 mg/dL (1.6-2.3); Potassium 3.9 mmol/L (3.4-5.0); Sodium 137 mmol/L (137-145)
[2023-10-10 16:06] LABS: Thyroid Stimulating Hormone 0.994 uIU/mL (0.465-4.680)
[2023-10-13 07:09] LABS: Thyroid Peroxidase Antibodies <1 IU/mL (<9)
== END 2023-10-10 15:11 | disposition home or self-care (01) ==
LOC: ANHLAB 15:11
PROVIDERS: PCP Internal Medicine; Visit Provider Clinical Nurse Specialist
DX: R00.2 Palpitations (principal); I10 Essential (primary) hypertension
CPT/HCPCS: 36415; 80048; 83735; 84443; 86376

== ENCOUNTER 2023-11-13 15:11 | Outpatient (CLI) | payer OTHER, SELFPAY ==
--- NOTE | 2023-11-16 12:57 | WPDHOLTEREM ---
Holter/Event Monitor Holter/Event Monitor Date of procedure: 11/13/23 Holter/Event Procedure: 48 Hr Holter Monitor Indications: Palpitations Conclusion: 1. 48 hour holter monitor on 11/13/23. 2. Underlying rhythm is sinus rhythm. HR range 49-148 bpm; average HR 79 bpm. HR at 49 bpm was at 01:28. HR at 148 bpm was at 18:23. 3. There are 8 premature supraventricular complexes and 1 supraventricular couplet. No supraventricular tachycardia. 4. There are 654 premature ventricular complexes. No ventricular tachycardia. 5. No sinoatrial or atrioventricular blocks. No significant pauses greater than 2 seconds. 6. Patient reports symptoms of dizziness, palpitations which demonstrate sinus rhythm, HR range 69-110 bpm with 1 PVC.
== END 2023-11-13 15:12 | disposition home or self-care (01) ==
LOC: ANHCARD 15:12
PROVIDERS: PCP Internal Medicine; Visit Provider Clinical Nurse Specialist
DX: R00.2 Palpitations (principal); R42 Dizziness and giddiness
CPT/HCPCS: 93225; 93226

== ENCOUNTER 2023-11-17 15:50 | Outpatient (CLI) | payer OTHER, SELFPAY ==
--- NOTE | ~2023-11-17 | MM_ITS ---
EXAMINATION: MM screening lulu BI w myra HISTORY: Screening mammogram TECHNIQUE: Craniocaudal and mediolateral oblique 3-D tomosynthesis images were obtained and synthetic 2-D images were generated. CAD analysis was submitted and interpreted. COMPARISON: 04/18/2023 diagnostic left mammogram and Limited left breast ultrasound 11/07/2022 diagnostic left mammogram and Limited left breast ultrasound bilateral screening mammogram BREAST PARENCHYMAL COMPOSITION: There are scattered areas of fibroglandular density. FINDINGS: Stable mild fibroglandular asymmetry, more prominent in the posterior upper outer left [address] st, stable since 10/11/2022, with no corresponding sonographic abnormality in this area on the prior u ltrasound examinations. There is no evidence of suspicious mass, calcification, or architectural dist ortion to suggest malignancy in either breast. There has been no suspicious interval change. IMPRESSION: 1. No mammographic evidence of malignancy. 2. Recommend routine screening mammography in one year. BI-RADS Category 1: Negative Reviewed, dictated and finalized at location B.
== END 2023-11-17 15:51 ==
LOC: MICIMG 15:50
PROVIDERS: PCP Obstetrics & Gynecology Gynecology; Visit Provider Obstetrics & Gynecology Gynecology
DX: Z12.31 Encounter for screening mammogram for malignant neoplasm of breast (principal)
CPT/HCPCS: 77063; 77067

== ENCOUNTER 2024-06-15 09:00 | Outpatient (CLI) | payer OTHER, SELFPAY ==
[2024-06-15 09:48] LABS: Hematocrit 40.9 % (37.0-47.0); Mean Corpuscular HGB Conc 34.2 g/dl (32-36); Mean Corpuscular Volume 90.7 fl (80-100); Mean Platelet Volume 9.1 fl (7.4-10.4); Platelet Count Result 274 k/mm3 (150-375); Red Blood Count 4.51 M/mm3 (4.2-5.4); Red Cell Distribution Width 11.9 % (11.5-14.5); White Blood Count 6.3 K/mm3 (4.5-10.0)
[2024-06-15 10:08] LABS: Alanine Aminotransferase 19 U/L (6-35); Albumin Level 4.5 g/dL (3.5-5.1); Alkaline Phosphatase 59 U/L (38-126); Anion Gap 8 mmol/L (4-12); Aspartate Amino Transferase 25 U/L (14-36); Bilirubin,Total 0.6 mg/dL (0.2-1.3); Blood Urea Nitrogen 13 mg/dL (7-17); Calcium 9.3 mg/dL (8.4-10.2); Carbon Dioxide 25 mmol/L (22-30); Chloride 105 mmol/L (98-107); Cholesterol 171 mg/dL (0-200); Estimated Glomerular Filt Rate > 60; Glucose 115 mg/dL (65-110); HDL Direct 32 mg/dL; Potassium 4.1 mmol/L (3.4-5.0); Sodium 138 mmol/L (137-145); Triglycerides 138 mg/dL (<150)
[2024-06-15 10:20] LABS: LDL Cholesterol Direct 101 mg/dL
[2024-06-15 10:38] LABS: Thyroid Stimulating Hormone 0.826 uIU/mL (0.465-4.680)
[2024-06-15 10:59] LABS: Free T4 Free Thyroxine 1.04 ng/dL (0.78-2.19); Vitamin D 25 Hydroxy 30.8 ng/mL
[2024-06-15 11:57] LABS: Hemoglobin A1C 5.4 % (<5.7)
== END 2024-06-15 09:01 | disposition home or self-care (01) ==
LOC: ANHLAB 09:03
PROVIDERS: PCP Internal Medicine; Visit Provider Obstetrics & Gynecology Gynecology
DX: Z01.419 Encounter for gynecological examination (general) (routine) without abnormal findings (principal)
CPT/HCPCS: 36415; 80053; 80061; 82306; 82607; 83036; 84439; 84443; 85027

== ENCOUNTER 2024-09-28 07:11 | Outpatient (CLI) | payer OTHER, SELFPAY ==
[2024-09-28 07:55] LABS: Anion Gap 9 mmol/L (4-12); Blood Urea Nitrogen 16 mg/dL (7-17); Calcium 9.1 mg/dL (8.4-10.2); Carbon Dioxide 28 mmol/L (22-30); Chloride 103 mmol/L (98-107); Estimated Glomerular Filt Rate > 60; Glucose 106 mg/dL (65-110); Potassium 4.4 mmol/L (3.4-5.0); Sodium 140 mmol/L (137-145)
[2024-09-28 08:02] LABS: Hemoglobin A1C 5.4 % (<5.7)
== END 2024-09-28 07:12 | disposition home or self-care (01) ==
LOC: ANHLAB 07:14
PROVIDERS: PCP Internal Medicine; Visit Provider Clinical Nurse Specialist
DX: R73.9 Hyperglycemia, unspecified (principal)
CPT/HCPCS: 36415; 80048; 83036

== ENCOUNTER 2024-11-27 11:56 | Outpatient (CLI) | payer OTHER, SELFPAY ==
--- NOTE | ~2024-11-27 | MM_ITS ---
EXAMINATION: MM screening lulu BI w myra HISTORY: Screening TECHNIQUE: Craniocaudal and mediolateral oblique 3-D tomosynthesis images were obtained and synthetic 2-D images were generated. CAD analysis was submitted and interpreted. COMPARISON: 11/17/2023 and 10/11/2022 BREAST PARENCHYMAL COMPOSITION: There are scattered areas of fibroglandular density. FINDINGS: There is no evidence of suspicious mass, calcification, or architectural distortion to sugg est malignancy in either breast. There has been no suspicious interval change. IMPRESSION: 1. No mammographic evidence of malignancy. 2. Recommend routine screening mammography in one year. BI-RADS Category 1: Negative Reviewed, dictated and finalized at location B.
== END 2024-11-27 11:57 | disposition home or self-care (01) ==
PROVIDERS: PCP Internal Medicine; Visit Provider Obstetrics & Gynecology Gynecology
DX: Z12.31 Encounter for screening mammogram for malignant neoplasm of breast (principal)
CPT/HCPCS: 77063; 77067

== ENCOUNTER 2024-12-04 10:16 | Outpatient (CLI) | payer OTHER, SELFPAY ==
--- NOTE | ~2024-12-04 | XR_ITS ---
XR cervical spine min 6V Ordering provider: Celestina Azar NP History: . 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 Comparison: None. FINDINGS: VERTEBRAL BODIES: Normal height and alignment. No visible fracture or subluxation. The dens is intact . DISK SPACES: Well maintained. PARASPINOUS SOFT TISSUES: No prevertebral soft tissue swelling. IMPRESSION: No acute osseous abnormality cervical spine. Reviewed, dictated and finalized at location A.
== END 2024-12-04 10:17 | disposition home or self-care (01) ==
LOC: GOSHIMG 10:17
PROVIDERS: PCP Nurse Practitioner; Visit Provider Nurse Practitioner
DX: M54.2 Cervicalgia (principal)
CPT/HCPCS: 72052

== ENCOUNTER 2025-04-21 12:56 | Outpatient (CLI) | payer OTHER, SELFPAY ==
--- OUTSIDE RECORDS SUMMARY | 2025-04-21 14:24 | XMS_ITS | Patient Health Record ---
Author Organization [facility] [employer] Address [address] [facility] [address] [place] [address] Care Team Providers Care Freelance Photographer Name Role Phone Nelsy Song Unavailable [phone] Reason For Referral No Information Plan Of Treatment No Information
[2025-04-21 15:00] LABS: Hematocrit 41.3 % (37.0-47.0); Hemoglobin 14.0 g/dL (12.0-15.0); Mean Corpuscular HGB Conc 33.9 g/dl (32-36); Mean Corpuscular Hemoglobin 31.1 pg (26-34); Mean Corpuscular Volume 91.8 fl (80-100); Platelet Count Result 321 k/mm3 (150-375); Red Blood Count 4.50 M/mm3 (4.2-5.4); White Blood Count 7.6 K/mm3 (4.5-10.0)
[2025-04-21 15:15] LABS: Alanine Aminotransferase 18 U/L (6-35); Albumin Level 4.9 g/dL (3.5-5.1); Alkaline Phosphatase 63 U/L (38-126); Anion Gap 11 mmol/L (4-12); Aspartate Amino Transferase 28 U/L (14-36); Bilirubin,Total 0.4 mg/dL (0.2-1.3); Blood Urea Nitrogen 20 mg/dL (7-17); Calcium 9.3 mg/dL (8.4-10.2); Carbon Dioxide 25 mmol/L (22-30); Chloride 103 mmol/L (98-107); Estimated Glomerular Filt Rate > 60; Glucose 90 mg/dL (65-110); Potassium 4.0 mmol/L (3.4-5.0); Sodium 139 mmol/L (137-145); Total Protein 8.7 g/dL (6.3-8.2)
== END 2025-04-21 12:57 | disposition home or self-care (01) ==
LOC: ANHLAB 12:58
PROVIDERS: PCP Nurse Practitioner; Visit Provider Obstetrics & Gynecology Gynecology
DX: R25.3 Fasciculation (principal)
CPT/HCPCS: 36415; 80053; 85027